=== PATIENT | male | born 1960 | race Caucasian/White ===

== ENCOUNTER 2016-06-09 09:08 | Inpatient (IN) | payer BC ==
[~2016-06-09] VITALS: Ht 162.6 cm; Wt 77.5 kg
[2016-06-09] MEDS ORDERED: SODIUM CHLORIDE 0.9% 1,000 ML ONE (09:39)
[2016-06-09] MEDS ORDERED: DILAUDID 1 MG/ML AMP ONE (09:39)
[2016-06-09] MEDS ORDERED: ACETAMINOPHEN 325 MG TAB ONE (09:39)
[2016-06-09] MEDS ORDERED: AZITHROMYCIN 500 MG VIAL IV ONE (11:17)
[2016-06-09] MEDS ORDERED: SODIUM CHLORIDE 0.9% 100 ML IV ONE (11:17)
[2016-06-09] MEDS ORDERED: SODIUM CHLORIDE 0.9% 250 ML IV ONE (11:17)
[2016-06-09] MEDS ORDERED: CEFTRIAXONE 1 GM VIAL ONE (11:17)
[2016-06-09] MEDS ORDERED: NEB-ALBUTEROL 2.5 MG/3 ML INH PRN (11:40)
[2016-06-09] MEDS ORDERED: MAG HYDROX 30 ML UDC PO PRN (11:45)
[2016-06-09] MEDS ORDERED: BISACODYL EC 5 MG TAB PO PRN (11:45)
[2016-06-09] MEDS ORDERED: ONDANSETRON 4 MG VIAL IV PRN (11:45)
[2016-06-09] MEDS ORDERED: BISACODYL 10 MG SUPP RECTAL PRN (11:45)
[2016-06-09] MEDS ORDERED: SALINE FLUSH 10 ML FLUSH PRN (11:45)
[2016-06-09 14:40] VITALS: Ht 162.6 cm; Wt 77.5 kg
[2016-06-09 14:51] VITALS: BP_SYST 150; RESP 20; TEMP 102.8
[2016-06-09 14:52] VITALS: BP_SYST 148
[2016-06-09] MEDS: GUAIFENESIN ER 600 MG TABCR PO SCH ×2 (15:06→20:13)
[2016-06-09] MEDS: DUONEB INH SCH ×2 (16:01→18:14)
[2016-06-09 16:02] VITALS: RESP 18
[2016-06-09] MEDS: ACETAMINOPHEN 325 MG TAB PO PRN ×2 (17:56→23:41)
[2016-06-09 19:34] VITALS: BP_SYST 152; RESP 20; TEMP 102
[2016-06-09] MEDS: SODIUM CHLORIDE 0.9% 1,000 ML IV SCH (19:49)
[2016-06-09] MEDS: SALINE FLUSH 10 ML FLUSH SCH (19:49)
[2016-06-09 23:38] VITALS: BP_SYST 125; RESP 20; TEMP 99.1
[2016-06-10 03:49] VITALS: BP_SYST 138; RESP 20; TEMP 98.3
[2016-06-10] MEDS: SODIUM CHLORIDE 0.9% FLUSH BAG 500 ML IV SCH (05:31)
[2016-06-10] MEDS: ACETAMINOPHEN 325 MG TAB PO PRN ×2 (06:28→20:08)
[2016-06-10] MEDS: DUONEB INH SCH ×3 (07:39→19:07)
[2016-06-10 07:48] VITALS: BP_SYST 149; RESP 18; TEMP 98.6
[2016-06-10] MEDS: SALINE FLUSH 10 ML FLUSH SCH ×2 (08:00→20:00)
[2016-06-10] MEDS: GUAIFENESIN ER 600 MG TABCR PO SCH ×2 (08:14→20:07)
[2016-06-10] MEDS: CEFTRIAXONE 1 GM in SODIUM CHLORIDE 0.9% 50 ML IV SCH (08:14)
[2016-06-10] MEDS: AZITHROMYCIN 500 MG in SODIUM CHLORIDE 0.9% 250 ML IV SCH (09:42)
[2016-06-10 11:15] VITALS: BP_SYST 151; RESP 18; TEMP 98.8
[2016-06-10] MEDS: LOSARTAN/HCTZ 50/12.5 MG TAB PO SCH (12:59)
[2016-06-10 15:22] VITALS: BP_SYST 155; RESP 18; TEMP 100.4
[2016-06-10 19:26] VITALS: BP_SYST 153; RESP 18; TEMP 98.5
[2016-06-10 21:50] VITALS: BP_SYST 171; RESP 20; TEMP 99.1
[2016-06-10] MEDS ORDERED: PHARMACY TO DOSE VANCOMYCIN IV SCH (23:50)
[2016-06-11] VITALS (7 sets, daily range): BP systolic 142–181; RESP 16–20; TEMP 97.7–101
[2016-06-11] MEDS: KETOROLAC 15 MG/ML VIAL IV PRN ×3 (00:54→13:32)
[2016-06-11] MEDS: VANCOMYCIN 1,500 MG in SODIUM CHLORIDE 0.9% 250 ML IV SCH ×3 (01:01→23:56)
[2016-06-11] MEDS: SODIUM CHLORIDE 0.9% 1,000 ML IV SCH (02:27)
[2016-06-11] MEDS: SODIUM CHLORIDE 0.9% FLUSH BAG 500 ML IV SCH (05:43)
[2016-06-11] MEDS: DUONEB INH SCH ×3 (06:22→20:38)
[2016-06-11] MEDS: SALINE FLUSH 10 ML FLUSH SCH ×2 (08:00→19:45)
[2016-06-11] MEDS: GUAIFENESIN ER 600 MG TABCR PO SCH ×2 (08:33→19:45)
[2016-06-11] MEDS: CEFTRIAXONE 1 GM in SODIUM CHLORIDE 0.9% 50 ML IV SCH (08:33)
[2016-06-11] MEDS: LOSARTAN/HCTZ 50/12.5 MG TAB PO SCH (08:33)
[2016-06-11] MEDS: AZITHROMYCIN 500 MG in SODIUM CHLORIDE 0.9% 250 ML IV SCH (09:57)
[2016-06-11] MEDS: ACETAMINOPHEN 325 MG TAB PO PRN ×2 (09:57→20:43)
[2016-06-11] MEDS ORDERED: MORPHINE 2 MG/ML SYR IV PRN (12:40)
[2016-06-11] MEDS ORDERED: KETOROLAC 30 MG/ML VIAL IV PRN (18:25)
[2016-06-11] MEDS: KETOROLAC 30 MG/ML VIAL IV PRN (19:44)
[2016-06-12] MEDS: ACETAMINOPHEN 325 MG TAB PO PRN (00:31)
[2016-06-12] MEDS: KETOROLAC 30 MG/ML VIAL IV PRN ×3 (02:24→15:19)
[2016-06-12 03:00] VITALS: BP_SYST 138; RESP 20; TEMP 98.1
[2016-06-12] MEDS: SODIUM CHLORIDE 0.9% FLUSH BAG 500 ML IV SCH (05:38)
[2016-06-12 07:23] VITALS: BP_SYST 161; RESP 20; TEMP 98.1
[2016-06-12] MEDS: DUONEB INH SCH ×3 (07:49→19:46)
[2016-06-12] MEDS: CEFTRIAXONE 1 GM in SODIUM CHLORIDE 0.9% 50 ML IV SCH (08:26)
[2016-06-12] MEDS: LOSARTAN/HCTZ 50/12.5 MG TAB PO SCH (08:27)
[2016-06-12] MEDS: GUAIFENESIN ER 600 MG TABCR PO SCH ×2 (08:27→21:11)
[2016-06-12] MEDS: SALINE FLUSH 10 ML FLUSH SCH ×2 (08:28→21:11)
[2016-06-12] MEDS: AZITHROMYCIN 500 MG in SODIUM CHLORIDE 0.9% 250 ML IV SCH (09:30)
[2016-06-12] MEDS: LEVOFLOXACIN 750 MG/150 ML 150 ML IV SCH (11:45)
[2016-06-12 12:15] VITALS: BP_SYST 142; RESP 16; TEMP 97.6
[2016-06-12] MEDS ORDERED: MISSING DOSE XX ONE (13:05)
[2016-06-12 15:48] VITALS: BP_SYST 154; RESP 16; TEMP 98
[2016-06-12 19:16] VITALS: BP_SYST 174; RESP 18; TEMP 97.9
[2016-06-12 22:42] VITALS: BP_SYST 170; RESP 16; TEMP 98.1
[2016-06-13 03:18] VITALS: BP_SYST 165; RESP 18; TEMP 98.3
[2016-06-13] MEDS: SODIUM CHLORIDE 0.9% FLUSH BAG 500 ML IV SCH (06:15)
[2016-06-13 07:13] VITALS: BP_SYST 172; RESP 20; TEMP 97.9
[2016-06-13] MEDS: DUONEB INH SCH ×2 (07:49→11:33)
[2016-06-13] MEDS: LOSARTAN/HCTZ 50/12.5 MG TAB PO SCH (09:16)
[2016-06-13] MEDS: SALINE FLUSH 10 ML FLUSH SCH (09:16)
[2016-06-13] MEDS: GUAIFENESIN ER 600 MG TABCR PO SCH (09:17)
[2016-06-13] MEDS: ACETAMINOPHEN 325 MG TAB PO PRN (09:19)
[2016-06-13] MEDS: LEVOFLOXACIN 750 MG/150 ML 150 ML IV SCH (09:19)
[2016-06-13 10:59] VITALS: BP_SYST 171; RESP 22; TEMP 98
[2016-06-13 15:16] VITALS: BP_SYST 175; RESP 22; TEMP 98.1
[2016-06-13 16:10] VITALS: BP_SYST 175; RESP 22; TEMP 98.1
[2016-06-14] MEDS ORDERED: LEVOFLOXACIN 750 MG TAB PO SCH (09:00)
[2016-06-14] MEDS ORDERED: LOSARTAN/HCTZ 50/12.5 MG TAB PO SCH (09:00)
== END 2016-06-13 16:56 | disposition home or self-care (01) | DRG 871 ==
LOC: ENRESERVDT → ENRESERVTM → ER 09:08 → ENPENDDIS 11:42 → EMR 11:42 → 4NT 14:07
PROVIDERS: ADMIT Internal Medicine; ATTEND Internal Medicine
DX: A41.89 Other specified sepsis (principal); J96.01 Acute respiratory failure with hypoxia; A48.1 Legionnaires' disease; R65.20 Severe sepsis without septic shock; I10 Essential (primary) hypertension; R51 Headache; E66.9 Obesity, unspecified; Z68.29 Body mass index [BMI] 29.0-29.9, adult; Z71.3 Dietary counseling and surveillance; M47.892 Other spondylosis, cervical region
CPT/HCPCS: 70450; 71010; 72125; 80048; 80053; 80202; 83605; 84145; 85007; 85025; 85027; 87040; 87278; 87299; 87804; 87880; 94640; 94799; 96361; 96374; 96375; 99223; 99233